=== PATIENT | female | born 1940 | race Caucasian/White ===

== ENCOUNTER 2017-04-24 08:53 | Emergency (ER) | payer MEDICARE ==
[~2017-04-24] VITALS: Ht 157.5 cm; Wt 76.7 kg
--- OUTSIDE RECORDS SUMMARY | ~2017-04-24 | XMS | Clinical Summary ---
Demographics + + + | Address | [address] | | | [place] [address] | + + + | Home Phone | | + + + | Preferred Language | Unknown | + + + | Marital Status | | + + + | Yarsanism Affiliation | BAP | + + + [...] | Unavailable | + + + Support +------+ + + + +-------+ | Name | Relationship | Address | Phone | +------+ + + + +-------+ ECON | [address] | | [place] | [address] | +------+ + + + +-------+ Care Team Providers + +------+ + | Care Lime Supervisor Name | Role | Phone | + +------+ + | Perez Gonzalez DO | PP | | + +------+ + Source Comments ANNE is fully live on both EpicCare Ambulatory and EpicCare InPatient.[facility] Allergies + + + + + + [...] | | | | e | | [place], Suspension | once daily. | | | [...] | | | | | | | [id number] | | | | | | | [...] MECLIZINE 25 mg | | | | 10/1 | | Activ | | Oral tablet | | | | 0/20 | | e | | | | | | 13 | | | + + +-------+---------+------+------+-------+ | METFORMIN SR 750 | | | | 10/0 | | Activ | | mg Oral tablet | | | | 7/20 | | e | | extended release 24 | | | | 13 | | | | hr | | | | | | | + + +-------+---------+------+------+-------+ | ZOLPIDEM 5 mg Oral | | | | 09/1 | | Activ | | tablet | | | | 9/20 | | e | | | | [...]
--- OUTSIDE RECORDS SUMMARY | ~2017-04-24 | XMS | Clinical Summary ---
Demographics + + + | Address | [address] | | | [place] [address] | + + + | Home Phone | | + + + | Preferred Language | Unknown | + + + | Marital Status | | + + + | Jainism Affiliation | BAP | + + + [...] [address] | | [place] | [address] | +------+ + + + +-------+ Care Team Providers + +------+ + | Care Hand Laster Name | Role | Phone | + +------+ + | Perez Gonzalez DO | PP | | + +------+ + Source Comments ANNE is fully live on both EpicCare Ambulatory and EpicCare InPatient.[facility] Allergies + + + + + [...] | | | | e | | [place], Suspension | once daily. | | | [...] | | | | | | | [id number] | | | | | | | [...]
[~2017-04-24 08:53] MED LIST: ABILIFY5 MG; ALEVE220 M1 PO; AMBIEN10 MG PO; AMBIEN5 MG PO; CARAFATE1 GM/10 ML PO; CARAMEL FLAVOR1 ML PO; CLINDAMYCIN HC300 MG PO; CONSTULOSE10 GM/15 M PO; CONTOUR1 EACH MISC; CYMBALTA60 MG PO; FIORINAL WITH1 EACH PO; FLUTICASONE PRO16 GM NAS; FUROSEMIDE40 MG PO; GLIPIZIDE ER2.5 MG PO; GLIPIZIDE XL2.5 MG PO; GLIPIZIDE XL5 MG PO; GLUCOPHAGE XR750 MG PO; HYDROCODON-ACE1 EA10 PO; IRON325 M1 PO; LEVOTHYROXINE112 MCG PO; LISINOPRIL20 MG PO; MECLIZINE HCL25 MG PO; PANTOPRAZOLE SO40 MG PO; PENICILLIN V P500 MG PO; PRILOSEC20 MG PO; PROPRANOLOL HCL10 MG PO; SPIRONOLACTONE100 MG PO; SULFAMETHOXAZO1 EAC1 PO; WOMEN'S DAILY1 EAC1 PO; ZYRTEC10 MG PO
== END 2017-04-24 10:18 | disposition home or self-care (01) ==
LOC: ED 08:53
PROC: 0HQ7XZZ Repair Abdomen Skin, External Approach (ICD-10-PCS; principal; 2017-04-24)
DX: K74.60 Unspecified cirrhosis of liver (principal); S31.133A Puncture wound of abdominal wall without foreign body, right lower quadrant without penetration into peritoneal cavity, initial encounter; E11.9 Type 2 diabetes mellitus without complications; F32.9 Major depressive disorder, single episode, unspecified; K21.9 Gastro-esophageal reflux disease without esophagitis; Z90.89 Acquired absence of other organs; Z90.710 Acquired absence of both cervix and uterus; Z90.49 Acquired absence of other specified parts of digestive tract; Z88.8 Allergy status to other drugs, medicaments and biological substances; Z79.899 Other long term (current) drug therapy; Z79.84 Long term (current) use of oral hypoglycemic drugs; X58.XXXA Exposure to other specified factors, initial encounter
CPT/HCPCS: 12001; 99282

== ENCOUNTER 2017-06-07 12:44 | Day surgery (SDC) | payer MEDICARE ==
--- NOTE | 2017-06-07 15:18 | NUR ---
[id number]: PT ARRIVES TO DS AMB ACCOMPANIED WITH FRIEND. PT PLACED IN DS RM 11 AND PROVIDED WARM BLANKET. VS OBTAINED. [id number]: DR. PLUMMER IN TO DS RM 11 TO SEE PT. 2 RN'S AT BEDSIDE ASSISTING 5 LITERS REMOVED FROM PT ABD. SEE DR. PLUMMER DICTATION FOR NOTES. [id number]: PROCEDURE COMPLETE. PT TOLERATED WELL. DR. PLUMMER ORDERED DC BLOOD GLUCOSE AND BP. VS AND CBG OBTAINED PER ORDER. RN ADJUSTS HOB TO 90 DEGREES PER PT REQUEST. PT IS RESTING IN BED AND WILL USE CALL LIGHT WHEN READY TO GET UP AND GET DRESSED.
--- NOTE | 2017-06-07 15:47 | NUR ---
[id number]: PT USES CALL LIGHT TO GET UP AND GET DRESSED. PT FRIEND CALLED FOR TRANSPORTATION. [id number]: PT DC'S FROM DS RM 11 VIA WHEELCHAIR WITH RN AND FRIEND.
--- NOTE | 2017-06-09 13:25 | OR ---
[facility] [address], [place] [address] Signed DATE OF OPERATION: 06/07/2017 SURGEON: Dianne Plummer MD PREOPERATIVE DIAGNOSES: 1. Intractable symptomatic ascites. 2. Cryptogenic cirrhosis of the liver. POSTOPERATIVE DIAGNOSES: 1. Intractable symptomatic ascites. 2. Cryptogenic cirrhosis of the liver. PROCEDURE: Right paracentesis (5 L). ANESTHESIA: Lidocaine 1%. INDICATION: A 76-year-old white woman is a patient of Dr. Bennett with progressive cirrhosis now with symptomatic ascites. She has undergone paracentesis in the [facility] by her cash poster and team. It is quite difficult for her to travel for palliative paracentesis and I have been asked to perform such a procedure. She understands as does her family the risks of bleeding, infection, recurrence of ascites related to this type of the procedure and wished to proceed. FINDINGS: Relatively clear yellow straw-colored fluid was noted from the peritoneal cavity. 5 L were drained without problem. DESCRIPTION OF PROCEDURE: The patient was in a semirecumbent position. The right abdominal area prepared with a chlorhexidine solution and draped sterilely. A 1% lidocaine was injected locally. A [employer]usion Qqzg-N-Yninhklk PLUS 8-Chinese pigtail catheter device was insinuated into the abdominal cavity after local anesthesia. Aspiration showed clear yellow fluid. It was attached to sequential suction canisters, 5 L in total were obtained. She has tolerated 5 L paracentesis in the past. Although more could have been withdrawn, so as to avoid sequela of paracentesis in excess, the catheter was removed at the end of 5 L withdrawal. There was leakage from the site and was oversewn with a 2-0 nylon suture. A Band-Aid Electronically Signed By: DIANNE PLUMMER MD 06/09/17 1325 PATIENT NAME: BRANDEE BRAGA OPERATIVE REPORT DATE OF : 36 REPORT #: [id number] PHYSICIAN: DIANNE PLUMMER MD PCP: MERVIN BENNETT DO REPORT IS CONFIDENTIAL AND NOT TO BE RELEASED WITHOUT AUTHORIZATION [address] [address] Signed was applied. She tolerated the procedure well. MD RICARDO Vilchis/MODL /[id number] cc: Mervin Bennett DO Copies: MERVIN BENNETT DO ~ Electronically Signed By: DIANNE PLUMMER MD 06/09/17 1325 PATIENT NAME: BRANDEE BRAGA OPERATIVE REPORT DATE OF : 36 REPORT #: [id number] PHYSICIAN: DIANNE PLUMMER MD PCP: MERVIN BENNETT DO REPORT IS CONFIDENTIAL AND NOT TO BE RELEASED WITHOUT AUTHORIZATION
== END 2017-06-07 16:00 | disposition home or self-care (01) ==
LOC: OPS 12:44 → DS 12:44 → OPS 13:00
PROC: 0W9G3ZX Drainage of Peritoneal Cavity, Percutaneous Approach, Diagnostic (ICD-10-PCS; principal; 2017-06-07)
DX: R18.8 Other ascites (principal); K74.60 Unspecified cirrhosis of liver; E11.9 Type 2 diabetes mellitus without complications; E03.9 Hypothyroidism, unspecified; K42.9 Umbilical hernia without obstruction or gangrene; K72.90 Hepatic failure, unspecified without coma; Z79.899 Other long term (current) drug therapy; Z86.010 Personal history of colon polyps
CPT/HCPCS: 49082

== ENCOUNTER 2017-06-18 11:01 | Emergency (ER) | payer MEDICARE ==
[~2017-06-18] VITALS: Ht 157.5 cm; Wt 76.7 kg
[2017-06-18] MEDS ORDERED: FERROUS SULFAT325 MG PO (13:28)
[2017-06-18] MEDS ORDERED: VITAMIN C1000 MG PO (13:29)
[2017-06-18] MEDS ORDERED: MULTIVITAMINS1 EAC7 PO (13:29)
[2017-06-18] MEDS ORDERED: LANTUS100 UNITS/ SUB-Q (13:29)
[2017-06-18] MEDS ORDERED: ZOFRAN ODT4 MG PO (13:30)
[2017-06-18] MEDS ORDERED: XIFAXAN550 MG PO (13:30)
--- OUTSIDE RECORDS SUMMARY | 2017-06-18 13:53 | XMS | Clinical Summary ---
Demographics + + + | Address | [address] | | | [place] [address] | + + + | Home Phone | | + + + | Preferred Language | Unknown | + + + | Marital Status | | + + + | Episcopal Affiliation | BAP | + + + | Race | White | + + + | Ethnic Group | Not or | + + + Author + + + | Author | NON REVENUE LOCATIONS | + + + | Organization | NON REVENUE LOCATIONS | + + + | Address | Unknown | + + + | Phone | Unavailable | + + + Support + + + + + | Name | Relationship | Address | Phone | + + + + + | GENOVEVA ROSARIO | ECON | [address] | | | | | [place] | | | | | [phone] | | + + + + + Care Team Providers + +------+ + | Care Manager Zone Name | Role | Phone | + +------+ + | Perez Gonzalez DO | PP | | + +------+ + Source Comments ANNE is fully live on both EpicCare Ambulatory and EpicCare InPatient.[facility] Allergies + + + + + + | Active Allergy | Reactions | Severity | Noted | Comments | | | | | Date | | + + + + + + | Rosuvastatin Calcium | Myalgia | | 01/16/20 | | | | | | 13 | | + + + + + + | Hydrochlorothiazide | | | 09/22/19 | | | | | | 11 | | + + + + + + | Atorvastatin Calcium | Myalgia | | 01/16/20 | | | | | | 13 | | + + + + + + Current Medications + + +-------+---------+------+------+-------+ | Prescription | Sig. | Disp. | Refills | Star | End | Statu | | | | | | t | Date | s | | | | | | Date | | | + + +-------+---------+------+------+-------+ | omeprazole 20 mg | Take 20 mg by mouth | | | | | Activ | | Oral Capsule, | once daily. | | | | | e | | Delayed | | | | | | | | Release(E.C.) | | | | | | | + + +-------+---------+------+------+-------+ | DULoxetine | Take 60 mg by mouth | | | | | Activ | | (CYMBALTA) 60 mg | once daily. | | | | | e | | Oral Capsule, | | | | | | | | Delayed | | | | | | | | Release(E.C.) | | | | | | | + + +-------+---------+------+------+-------+ | fluticasone 50 | Instill 2 Sprays | | | | | Activ | | mcg/Actuation Nasal | into each nostril | | | | | e | | [place], Suspension | once daily. | | | | | | + + +-------+---------+------+------+-------+ | METHYLCELLULOSE | Take by mouth. | | | | | Activ | | (CITRUCEL ORAL) | | | | | | e | + + +-------+---------+------+------+-------+ | MULTIVITS | Take by mouth. | | | | | Activ | | W-FE,OTHER MIN | | | | | | e | | (CENTRUM ORAL) | | | | | | | + + +-------+---------+------+------+-------+ | CA CIT/MGOX/VIT | Take by mouth. | | | | | Activ | | D3/LILLIAM/MIN AA | | | | | | e | | (CALCIUM-VIT | | | | | | | | [id number] | | | | | | | | ORAL) | | | | | | | + + +-------+---------+------+------+-------+ | CALCIUM | Take by mouth. | | | | | Activ | | CARBONATE/VITAMIN D3 | | | | | | e | | (CALTRATE 600 + D | | | | | | | | ORAL) | | | | | | | + + +-------+---------+------+------+-------+ | | Take by mouth. | | | | | Activ | | CODEINE/BUTALBITAL/A | | | | | | e | | SA/CAFFEIN | | | | | | | | (BUTALBITAL COMPOUND | | | | | | | | W/CODEINE ORAL) | | | | | | | + + +-------+---------+------+------+-------+ | MECLIZINE 25 mg | | | | 10/ | | Activ | | Oral tablet | | | | 020 | | e | | | | | | 13 | | | + + +-------+---------+------+------+-------+ | METFORMIN SR 750 | | | | 10/0 | | Activ | | mg Oral tablet | | | | 10/11 | | e | | extended release 24 | | | | 13 | | | | hr | | | | | | | + + +-------+---------+------+------+-------+ | ZOLPIDEM 5 mg Oral | | | | 11/23 | | Activ | | tablet | | | | 12/12 | | e | | | | | | 13 | | | + + +-------+---------+------+------+-------+ Active Problems + + + | Problem | Noted Date | + + + | Cerebral aneurysm | 03/12/2013 | + + + | MONTERO (nonalcoholic steatohepatitis) | 06/04/2012 | + + + | Cirrhosis (HCC) | 11/29/2011 | + + + Social History + +-------+ +--------+------+ | Tobacco Use | Types | Packs/Day | Years | Date | | | | | Used | | + +-------+ +--------+------+ | Never Smoker | | | | | + +-------+ +--------+------+ + + +---------+ + | Alcohol Use | Drinks/We | oz/Week | Comments | | | ek | | | + + +---------+ + | No | | | | + + +---------+ + + + + | Sex Assigned at | Date Recorded | | | | + + + | Not on file | | + + + Last Filed Vital Signs + + + + | Vital Sign | Reading | Time Taken | + + + + | Blood Pressure | 131/60 | 01/14/2013 1:27 PM PDT | + + + + | Pulse | 82 | 01/14/2013 1:27 PM PDT | + + + + | Temperature | 36.2 C (97.2 F) | 01/14/2013 1:27 PM PDT | + + + + | Respiratory Rate | 17 | 01/14/2013 1:27 PM PDT | + + + + | Oxygen Saturation | - | - | + + + + | Inhaled Oxygen | - | - | | Concentration | | | + + + + | Weight | 83.7 kg (184 lb 8 | 01/14/2013 1:27 PM PDT | | | oz) | | + + + + | Height | 160 cm (5' 3") | 01/14/2013 1:27 PM PDT | + + + + | Body Mass Index | 32.68 | 01/14/2013 1:27 PM PDT | + + + + Plan of Treatment + + + + + | Health Maintenance | Due Date | Last Done | Comments | + + + + + | INFLUENZA VACCINE | | | | | (FLU SHOT) | 7 | | | + + + + + Results Not on filefrom Last 3 Months
--- OUTSIDE RECORDS SUMMARY | 2017-06-18 13:53 | XMS | Clinical Summary ---
Demographics + + + | Address | [address] | | | [place] [address] | + + + | Home Phone | | + + + | Preferred Language | Unknown | + + + | Marital Status | | + + + | Buddhism Affiliation | BAP | + + + [...] [place] | | | | | [address] | | + + + + + Care Team Providers + +------+ + | Care Diesel Mechanic Helper Name | Role | Phone | + +------+ + | Perez Gonzalez DO | PP | | + +------+ + Source Comments ANNE is fully live on both EpicCare Ambulatory and EpicCare InPatient.[facility] Allergies + + + + + + [...] | | | | e | | [place], Suspension | once daily. | | | [...] | | | | | | | [id number] | | | | | | | [...]
== END 2017-06-18 13:55 | disposition short-term general hospital (02) ==
LOC: ED 11:01
PROC: 0T9B70Z Drainage of Bladder with Drainage Device, Via Natural or Artificial Opening (ICD-10-PCS; principal; 2017-06-18)
DX: N17.9 Acute kidney failure, unspecified (principal); K72.90 Hepatic failure, unspecified without coma; E11.9 Type 2 diabetes mellitus without complications; F32.9 Major depressive disorder, single episode, unspecified; K21.9 Gastro-esophageal reflux disease without esophagitis; Z88.8 Allergy status to other drugs, medicaments and biological substances; Z79.899 Other long term (current) drug therapy; Z79.84 Long term (current) use of oral hypoglycemic drugs
CPT/HCPCS: 51701; 80053; 81001; 82140; 85025; 85610; 85730; 96374; 99285; J2405; J7030